=== PATIENT | male | born 2000 ===

== ENCOUNTER 2021-07-03 03:51 | Emergency (ER) | payer SELFPAY ==
[2021-07-03 05:21] LABS: BLOOD UREA NITROGEN,BUN 20 mg/dL (7.0-18.0); CARBON DIOXIDE,CO2 27.4 mmol/L (21.0-32.0); CHLORIDE,CL 101 mmol/L (98-107); GLUCOSE RANDOM 100 mg/dL (74-106); POTASSIUM,K 4.2 mmol/L (3.5-5.1); SODIUM,NA 137 mmol/L (136-148)
[2021-07-03] MEDS ORDERED: levETIRAcetam 500 MG Tab PO STA (05:26)
[2021-07-03] MEDS ORDERED: Lactated Ringers 1,000 ML IV STA (05:37)
[2021-07-03] MEDS ORDERED: Ondansetron 4 MG/2 ML SDV IVPUSH ONE (05:43)
[2021-07-03] MEDS ORDERED: Calcium Gluconate 10% 1 GM/10 ML SDV IVPUSH ONE (05:44)
[2021-07-03] MEDS ORDERED: Ondansetron 4 MG/2 ML SDV ONE (05:44)
[2021-07-03 06:02] LABS: ACETAMINOPHEN <2.0 ug/mL
[2021-07-03 06:17] LABS: BLOOD UREA NITROGEN,BUN 20 mg/dL (7.0-18.0); CHLORIDE,CL 100 mmol/L (98-107); GLUCOSE RANDOM 112 mg/dL (74-106); POTASSIUM,K 3.6 mmol/L (3.5-5.1); SODIUM,NA 136 mmol/L (136-148)
== END 2021-07-03 06:40 | disposition home or self-care (01) ==
LOC: MW.ED 03:51
DX: R55 Syncope and collapse (principal); R83.5 Abnormal microbiological findings in cerebrospinal fluid; R56.9 Unspecified convulsions
CPT/HCPCS: 36415; 70450; 71045; 80048; 80053; 80143; 80179; 80305; 80307; 82550; 82947; 83605; 83735; 84450; 84460; 84484; 85025; 93005; 96365; 96375; 99284; J0610; J1953; J2405; J7120; 93010; 99291